=== PATIENT | female | born 1980 | race Caucasian/White ===

== ENCOUNTER 2017-04-17 03:45 | Inpatient (IN) | payer SELFPAY ==
[~2017-04-17] VITALS: Ht 170.2 cm; Wt 68.0 kg
[2017-04-17] MEDS ORDERED: WITCH HAZEL-GLYCERIN PAD TOP ONE (04:05)
[2017-04-17] MEDS ORDERED: PHISODERM TOP SOLN 240ML BTL TOP ONE (04:05)
[2017-04-17] MEDS ORDERED: OXYTOCIN 10UNIT/ML 1ML VIAL ONE (04:05)
[2017-04-17] MEDS ORDERED: LACT. RINGERS/OXYTOCIN 20UNITS 1,000 ML IV ONE (04:05)
[2017-04-17] MEDS ORDERED: DERMOPLAST 60ML BOTTLE TOP ONE (04:05)
[2017-04-17] MEDS ORDERED: LIDOCAINE 2%HCL (LOCAL ANESTH.) INJ 20ML MDV ONE (04:05)
[2017-04-17] MEDS ORDERED: METHYLERGONOVINE MALEATE 0.2 MG/ML AMP IM ONE (04:06)
[2017-04-17] MEDS ORDERED: LACT. RINGERS/OXYTOCIN 20UNITS 1,000 ML IV SCH (04:49)
[2017-04-17] MEDS ORDERED: PHISODERM TOP SOLN 240ML BTL TOP PRN (05:00)
[2017-04-17] MEDS ORDERED: DERMOPLAST 60ML BOTTLE TOP PRN (05:00)
[2017-04-17] MEDS ORDERED: IBUPROFEN 600 MG TAB PO PRN (05:00)
[2017-04-17] MEDS ORDERED: WITCH HAZEL-GLYCERIN PAD TOP PRN (05:00)
[2017-04-17] MEDS ORDERED: LIDOCAINE 2%HCL (LOCAL ANESTH.) INJ 20ML MDV IJ ONE (05:00)
[2017-04-17 05:41] LABS: Urine Bilirubin Negative (Negative); Urine Color Yellow (Yellow); Urine Glucose Normal (Normal); Urine Ketone Negative (Negative); Urine Mucus FEW (None Seen); Urine RBC 132 /hpf (0 - 4); Urine Squamous Epithelial Cell FEW /hpf (<5); Urine Urobilinogen Normal (Negative); Urine pH 6.5 (5.0-8.0)
[2017-04-17 05:48] LABS: Basophils # (auto) 0 uL; Eosinophils # (auto) 0 uL; Eosinophils % (auto) 0.1 % (0.0-7.0); Hematocrit 34.5 % (36.0-46.0); Hemoglobin 11.5 g/dL (12.2-16.2); Lymphocytes % (auto) 6.8 % (10.0-50.0); Mean Corpuscular Hemoglobin 27.3 pg (28.0-32.0); Mean Corpuscular Hgb Conc. 33.3 g/dL (32.0-36.0); Mean Platelet Volume 8.1 fL (7.4-10.4); Monocytes # (auto) 0.6 uL; Monocytes % (auto) 4.2 % (0.0-12.0); Neutrophils % (auto) 88.9 % (37.0-80.0); Platelet Count (auto) 312 10^3/uL (140-450); Red Cell Distribution Width 14.1 % (11.6-16.0); White Blood Cell 14.7 10^3/uL (4.4-10.8)
[2017-04-17 05:50] LABS: Partial Thromboplastin Time 21.9 sec (22.64-33.71); Prothrombin Time 9.7 sec (9.37-12.3)
[2017-04-17 05:53] LABS: Urine Blood 2+ /uL (Negative); Urine Nitrite POSITIVE (Negative)
[2017-04-17 05:55] LABS: Albumin 2.8 g/dL (3.4-5.0); BUN/Creatinine Ratio 5.8; Bilirubin, Total 0.3 mg/dL (0.2-1.0); Calcium 8.4 mg/dL (8.5-10.1); Potassium 3.5 mmol/L (3.5-5.1); Total Protein 7.1 g/dL (6.4-8.2)
[2017-04-17 05:57] LABS: INR 0.89 (0.9-1.15)
[2017-04-17 12:14] VITALS: BP 124/77
[2017-04-17 16:09] VITALS: BP 126/80
[2017-04-17 20:00] VITALS: BP 117/68
[2017-04-17] MEDS ORDERED: TETANUS-DIPTH-ACEL PERTUSSIS 0.5ML SYRG IM ONE (21:00)
[2017-04-18] VITALS: BP 109/67
[2017-04-18 04:00] VITALS: BP 108/66
[2017-04-18 07:30] VITALS: BP 123/68
[2017-04-18 12:08] LABS: HIV-1/O/2 Scrn w/Reflex Non Reactive (Non Reactive)
== END 2017-04-18 09:13 | disposition home or self-care (01) | DRG 775 ==
LOC: OBSVTOIN 03:45 → LDRP 03:45
PROVIDERS: ADMIT Obstetrics & Gynecology; ATTEND Obstetrics & Gynecology
PROC: 10E0XZZ Delivery of Products of Conception, External Approach (ICD-10-PCS; principal; 2017-04-17)
PROC: 0HQ9XZZ Repair Perineum Skin, External Approach (ICD-10-PCS; 2017-04-17)
PROC: 30233S1 Transfusion of Nonautologous Globulin into Peripheral Vein, Percutaneous Approach (ICD-10-PCS; 2017-04-17)
DX: O62.3 Precipitate labor (principal); O71.4 Obstetric high vaginal laceration alone; O76 Abnormality in fetal heart rate and rhythm complicating labor and delivery; Z23 Encounter for immunization; Z37.0 Single live birth; Z3A.37 37 weeks gestation of pregnancy
CPT/HCPCS: 36415; 59025; 59409; 76805; 80053; 80307; 81001; 85025; 85610; 85730; 86592; 86762; 86850; 86900; 86901; 87340; 90384; 90472; 90715; 96372; G0378; J2590